=== PATIENT | female | born 1985 | race Caucasian/White ===

== ENCOUNTER 2018-12-05 10:08 | Emergency (ER) | payer SELFPAY ==
[~2018-12-05] VITALS: Ht 162.6 cm; Wt 48.0 kg
[~2018-12-05 10:08] MED LIST: ACYC-114 PO; ACYC200O2 PO; IBUP-1222 PO; PNV1TABL11 PO
[2018-12-05 10:13] VITALS: BP 142/97
[2018-12-05] MEDS ORDERED: DIPH,PERTUSS(ACELL),TET VAC/PF 0.5 ML IM-VACC ONE ×2 (10:40→11:00)
--- NOTE | 2018-12-05 11:14 | NUR ---
CT PAGED TO COLLECT PT, PER COLORMAN PT IS 3RD IN QUEUE.
--- NOTE | 2018-12-05 12:16 | NUR ---
pt given dc instructions and script, educated regarding ketonozole and naproxen rx. pt a&o, resps even and unlabored, nadn. pt amb to dc with steady gait.
== END 2018-12-05 12:17 | disposition home or self-care (01) ==
LOC: ED 12:00
DX: S00.33XA Contusion of nose, initial encounter (principal); L21.9 Seborrheic dermatitis, unspecified; F10.129 Alcohol abuse with intoxication, unspecified; W01.0XXA Fall on same level from slipping, tripping and stumbling without subsequent striking against object, initial encounter; Y93.89 Activity, other specified; Y92.410 Unspecified street and highway as the place of occurrence of the external cause; Y99.8 Other external cause status
CPT/HCPCS: 70450; 70486; 90471; 90715; 99284

== ENCOUNTER 2020-08-23 02:49 | Inpatient (IN) | payer OTHER ==
[~2020-08-23] VITALS: Ht 160 cm; Wt 46.6 kg
[~2020-08-23 02:49] MED LIST changes: -ACYC-114 PO; +ACYC-40 PO
--- NOTE | 2020-08-23 03:06 | NUR ---
INITIAL PT CONTACT. PT PRESENTS TO ED C/O "ETOH WITHDRAWL" LAST DRINK YESTERDAY, NORMAL INTAKE IS 4 GLASSES OF WINE DAILY. PT NOW C/O CHEST PAIN AND TREMORS WITH DIZZINESS AND HEADACHE. PT SITTING UPRIGHT ON GURNEY, ANXIOUS AND TREMULOUS. PT PLACED ON CONTINUOUS MONITORING. CALL LIGHT AND BELONGINGS WITHIN REACH. ERP AT BEDSIDE
[2020-08-23] MEDS ORDERED: LORazepam 2 MG/ML, 1ML ONE ×2 (03:25→04:15)
[2020-08-23] MEDS ORDERED: SODIUM CHLORIDE FLUSH 10ML SYR IVF ONE (03:30)
[2020-08-23] MEDS ORDERED: THIAMINE 100MG TABLET PO ONE (03:30)
[2020-08-23] MEDS ORDERED: SODIUM CHLORIDE 0.9% 1,000ML IVBOLUS ONE (03:30)
[2020-08-23] MEDS ORDERED: LORazepam 2 MG/ML, 1ML IVPush ONE ×2 (03:30→04:30)
[2020-08-23] MEDS ORDERED: THIAMINE 100MG TABLET ONE (03:32)
[2020-08-23 04:00] LABS: BASOPHILS % (AUTO) 2 % (0-1); EOSINOPHILS % (AUTO) 7 % (1-7); LYMPHOCYTES % (AUTO) 38 % (22-44); MEAN CORPUSCULAR HEMOGLOBIN 35.3 pg (27.0-34.8); MEAN CORPUSCULAR HGB CONC 34.6 g/dL (32.4-35.8); MEAN PLATELET VOLUME 9.1 fL (7.4-10.4); MONOCYTES % (AUTO) 12 % (2-9); NEUTROPHILS % (AUTO) 41 % (42-75); PLATELET COUNT 107 x10^3/uL (130-400); RED BLOOD COUNT 3.99 x10^6/uL (3.82-5.3); RED CELL DISTRIBUTION WIDTH 14.4 % (9.6-15.2)
[2020-08-23 04:02] LABS: ALANINE AMINOTRANSFERASE 138 U/L (12-78); ALBUMIN 3.8 g/dL (3.4-5.0); ANION GAP 7 mmol/L (5-15); CALCIUM 8.9 mg/dL (8.5-10.1); CHLORIDE 99 mmol/L (98-107); CREATININE 0.56 mg/dL (0.55-1.02)
[2020-08-23 04:08] LABS: ALKALINE PHOSPHATASE 171 U/L (45-117); BILIRUBIN,TOTAL 1.7 mg/dL (0.2-1.0)
[2020-08-23] MEDS ORDERED: POTASSIUM CHLORIDE 20 MEQ TAB.ER.PRT ONE (04:15)
[2020-08-23 04:30] LABS: FREE T4 (FREE THYROXINE) 1.08 ng/dL (0.76-1.46)
[2020-08-23] MEDS ORDERED: POTASSIUM CHLORIDE 20 MEQ TAB.ER.PRT PO ONE (04:30)
[2020-08-23] MEDS ORDERED: MAGNESIUM SULFATE 1 GM, THIAMINE 100 MG, FOLIC ACID 1 MG, MVI ADULT 10 ML in SODIUM CHL... IV ONE (05:00)
--- NOTE | 2020-08-23 06:00 | NUR ---
PT TO BATHROOM VIA WHEELCHAIR WITH THIS RN. PT DENIES ANY ADDITIONAL NEEDS AT THIS TIME. CALL LIGHT AND PERSONAL BELONGINGS WITHIN REACH. SPOUSE REMAINS AT BEDSIDE.
--- NOTE | 2020-08-23 07:01 | NUR ---
BEDSIDE REPORT FROM RUSLAN GARNER FOR TRANSFER OF PATIENT CARE.
--- NOTE | 2020-08-23 07:01 | NUR ---
REPORT GIVEN TO NEHEMIAH MERCER
--- NOTE | 2020-08-23 07:36 | NUR ---
DR. SAMPSON, [facility] AT BEDSIDE FOR ADMISSION EVAL.
[2020-08-23] MEDS ORDERED: ONDANSETRON 2MG/ML, 2ML IVPush PRN (08:00)
[2020-08-23] MEDS ORDERED: LORazepam 1MG TABLET PO PRN ×4 (08:00)
[2020-08-23] MEDS ORDERED: POLYETHYLENE GLYCOL 17 GM PACKET PO PRN (08:00)
[2020-08-23] MEDS ORDERED: ACETAMINOPHEN 325 MG TABLET PO PRN (08:00)
[2020-08-23] MEDS ORDERED: LORazepam 0.5MG TABLET PO PRN (08:00)
[2020-08-23] MEDS ORDERED: SENNA/DOCUSATE TABLET PO PRN (08:00)
[2020-08-23] MEDS ORDERED: ONDANSETRON ODT 4 MG PO PRN (08:00)
[2020-08-23] MEDS ORDERED: LORazepam 2 MG/ML, 1ML IV PRN ×5 (08:00)
[2020-08-23 08:34] LABS: INTERNATIONAL NORMALIZED RATIO 1.05 (0.93-1.1); PROTHROMBIN TIME 11.2 Seconds (9.6-11.5)
--- NOTE | 2020-08-23 08:37 | NUR ---
BREAKFAST TRAY PROVIDED, FRIEND AT BEDSIDE, CONNECTED TO MONITOR, VSS, CALL LIGHT WITHIN REACH.
--- NOTE | 2020-08-23 08:45 | NUR ---
PATIENT AMBULATED TO BATHROOM WITH ASSISTANCE OF FRIEND.
--- NOTE | 2020-08-23 08:48 | NUR ---
ATTEMPTED TO CALL REPORT.
--- NOTE | 2020-08-23 08:56 | NUR ---
REPORT TO RUSLAN VELASCO FOR TRANSFER OF PATIENT CARE.
[2020-08-23] MEDS ORDERED: MULTIVITAMIN 1 TABLET PO SCH (09:00)
[2020-08-23] MEDS ORDERED: FOLIC ACID 1 MG TABLET PO SCH (09:00)
[2020-08-23] MEDS ORDERED: POTASSIUM CHLORIDE 20 MEQ PACKET PO SCH (09:00)
[2020-08-23] MEDS ORDERED: THIAMINE 100MG TABLET PO SCH (09:00)
--- NOTE | 2020-08-23 09:11 | NUR ---
PATIENT TRANSFERRED IN STABLE CONDITION TO CARDIAC TELE VIA GURNEY WITH MENTAL HEALTH COUNSELOR. ALL PATIENT BELONGINGS TAKEN TO FLOOR WITH PATIENT.
[2020-08-23 09:14] LABS: AMPHETAMINE SCREEN, URINE Negative (Negative); BARBITURATE SCREEN, URINE Negative (Negative); BENZODIAZEPINE SCREEN, URINE Negative (Negative); CANNABINOID SCREEN, URINE Negative (Negative); COCAINE SCREEN, URINE Negative (Negative); METHADONE SCREEN, URINE Negative (Negative); OPIATE SCREEN, URINE Negative (Negative)
[2020-08-23 09:32] VITALS: BP 128/92
[2020-08-23 13:54] VITALS: BP 129/94
[2020-08-23] MEDS ORDERED: CHLORDIAZEPOXIDE 25 MG CAPSULE PO SCH ×2 (14:30)
[2020-08-23 14:56] VITALS: BP 148/112
[2020-08-23] MEDS ORDERED: DIAZEPAM 5 MG TABLET PO SCH (15:00)
[2020-08-23 15:01] VITALS: BP 150/115
[2020-08-23 15:26] VITALS: BP 150/121
[2020-08-23] MEDS ORDERED: LABETALOL 5MG/ML, 20ML IV PRN ×3 (16:00→22:00)
[2020-08-23] MEDS ORDERED: PHENOBARBITAL SODIUM 520 MG in SODIUM CHLORIDE 0.9% 50 ML IVPB ONE (16:00)
[2020-08-23] MEDS ORDERED: DEXMEDETOMIDINE 200 MCG in SODIUM CHLORIDE 0.9% 48 ML IV PRN (16:00)
[2020-08-23] MEDS ORDERED: PHARMACY INSTRUCTION MC PRN ×4 (16:00)
[2020-08-23] MEDS ORDERED: SODIUM CHLORIDE 0.9% IV ONE (16:30)
[2020-08-23] MEDS ORDERED: PHENOBARBITAL SODIUM IV ONE (16:30)
[2020-08-23] MEDS: PHENOBARBITAL SODIUM 130 MG/ML, 1ML IM SCH (23:55)
[2020-08-24 07:26] LABS: BASOPHILS % (AUTO) 1 % (0-1); EOSINOPHILS % (AUTO) 1 % (1-7); LYMPHOCYTES % (AUTO) 6 % (22-44); MEAN CORPUSCULAR HEMOGLOBIN 35.2 pg (27.0-34.8); MEAN CORPUSCULAR HGB CONC 34.2 g/dL (32.4-35.8); MEAN PLATELET VOLUME 9.1 fL (7.4-10.4); MONOCYTES % (AUTO) 5 % (2-9); NEUTROPHILS % (AUTO) 88 % (42-75); PLATELET COUNT 99 x10^3/uL (130-400); RED BLOOD COUNT 3.93 x10^6/uL (3.82-5.3); RED CELL DISTRIBUTION WIDTH 14.2 % (9.6-15.2)
[2020-08-24 07:37] LABS: ALANINE AMINOTRANSFERASE 112 U/L (12-78); ALBUMIN 3.7 g/dL (3.4-5.0); ANION GAP 7 mmol/L (5-15); CALCIUM 9.2 mg/dL (8.5-10.1); CHLORIDE 100 mmol/L (98-107); CREATININE 0.57 mg/dL (0.55-1.02)
[2020-08-24 07:39] LABS: ALKALINE PHOSPHATASE 155 U/L (45-117); BILIRUBIN,TOTAL 2.6 mg/dL (0.2-1.0); TOTAL PROTEIN 7.8 g/dL (6.4-8.2)
[2020-08-24] MEDS ORDERED: POTASSIUM CHLORIDE 20 MEQ, MAGNESIUM SULFATE 1 GM, FOLIC ACID 1 MG, THIAMINE 200 MG, MV... IV SCH (08:00)
[2020-08-24] MEDS ORDERED: IBUPROFEN 200 MG TABLET ONE (09:54)
[2020-08-24] MEDS ORDERED: MAGNESIUM SULFATE PMX 2GM/50ML 50 ML IV ONE (10:00)
[2020-08-24] MEDS: IBUPROFEN 200 MG TABLET PO PRN (10:01)
[2020-08-24] MEDS: POTASSIUM ACID PHOSPHATE 500 MG TABLET.SOL PO SCH ×3 (10:46→22:48)
[2020-08-24] MEDS: POTASSIUM CHLORIDE 20 MEQ TAB.ER.PRT PO SCH ×2 (10:46→16:24)
[2020-08-24] MEDS: PHENOBARBITAL SODIUM 130 MG/ML, 1ML IM SCH (10:48)
[2020-08-24 13:49] VITALS: BP 116/79
[2020-08-24] MEDS: DIPHENHYDRAMINE 50 MG/ML, 1ML IVPush PRN (16:24)
[2020-08-24] MEDS: METOCLOPRAMIDE 5 MG/ML, 2ML IVPush PRN (16:24)
[2020-08-24] MEDS: THIAMINE 100MG TABLET PO SCH (19:55)
[2020-08-24 20:00] VITALS: BP 117/82
[2020-08-24] MEDS: PHENOBARBITAL 20 MG/5 ML ORAL SOL PO SCH (22:48)
[2020-08-25 00:49] VITALS: BP 102/70
[2020-08-25] MEDS: POTASSIUM ACID PHOSPHATE 500 MG TABLET.SOL PO SCH ×3 (04:37→16:52)
[2020-08-25 05:15] LABS: BASOPHILS % (AUTO) 1 % (0-1); EOSINOPHILS % (AUTO) 4 % (1-7); LYMPHOCYTES % (AUTO) 20 % (22-44); MEAN CORPUSCULAR HEMOGLOBIN 35.5 pg (27.0-34.8); MEAN CORPUSCULAR HGB CONC 34.2 g/dL (32.4-35.8); MONOCYTES % (AUTO) 5 % (2-9); NEUTROPHILS % (AUTO) 70 % (42-75); PLATELET COUNT 96 x10^3/uL (130-400); RED BLOOD COUNT 3.34 x10^6/uL (3.82-5.3)
[2020-08-25 05:21] LABS: ALANINE AMINOTRANSFERASE 86 U/L (12-78); ALBUMIN 2.9 g/dL (3.4-5.0); ANION GAP 4 mmol/L (5-15); CALCIUM 8.2 mg/dL (8.5-10.1); CHLORIDE 107 mmol/L (98-107); CREATININE 0.41 mg/dL (0.55-1.02)
[2020-08-25 05:48] LABS: ALKALINE PHOSPHATASE 140 U/L (45-117); BILIRUBIN,TOTAL 1.4 mg/dL (0.2-1.0); TOTAL PROTEIN 6.5 g/dL (6.4-8.2)
[2020-08-25] MEDS ORDERED: CYANOCOBALAMIN 1,000 MCG TABLET ONE (07:53)
[2020-08-25] MEDS: MULTIVITAMIN 1 TABLET PO SCH (08:01)
[2020-08-25] MEDS: POTASSIUM CHLORIDE 20 MEQ TAB.ER.PRT PO SCH (08:01)
[2020-08-25] MEDS: MAGNESIUM OXIDE 400 MG TABLET PO SCH (08:02)
[2020-08-25] MEDS: THIAMINE 100MG TABLET PO SCH ×2 (08:02→20:27)
[2020-08-25] MEDS: FOLIC ACID 1 MG TABLET PO SCH (08:02)
[2020-08-25] MEDS: CYANOCOBALAMIN 1,000 MCG TABLET PO SCH (08:03)
[2020-08-25 08:15] VITALS: BP 124/92
[2020-08-25] MEDS: PHENOBARBITAL 20 MG/5 ML ORAL SOL PO SCH ×2 (11:03→23:22)
[2020-08-25] MEDS: IBUPROFEN 200 MG TABLET PO PRN (11:07)
[2020-08-25 13:10] VITALS: BP 123/87
[2020-08-25] MEDS ORDERED: CALCIUM CARBONATE 500 MG TAB.CHEW PO PRN (16:00)
[2020-08-25] MEDS: METOCLOPRAMIDE 5 MG/ML, 2ML IVPush PRN (18:33)
[2020-08-25] MEDS: DIPHENHYDRAMINE 50 MG/ML, 1ML IVPush PRN (18:33)
[2020-08-25 20:19] VITALS: BP 120/89
[2020-08-26 02:25] VITALS: BP 108/76
[2020-08-26 04:53] LABS: BASOPHILS % (AUTO) 1 % (0-1); EOSINOPHILS % (AUTO) 4 % (1-7); LYMPHOCYTES % (AUTO) 16 % (22-44); MEAN CORPUSCULAR HGB CONC 35.3 g/dL (32.4-35.8); MEAN PLATELET VOLUME 9.5 fL (7.4-10.4); MONOCYTES % (AUTO) 5 % (2-9); NEUTROPHILS % (AUTO) 74 % (42-75); PLATELET COUNT 112 x10^3/uL (130-400); RED BLOOD COUNT 3.37 x10^6/uL (3.82-5.3); RED CELL DISTRIBUTION WIDTH 14.1 % (9.6-15.2)
[2020-08-26 04:57] LABS: CALCIUM 8.7 mg/dL (8.5-10.1); CHLORIDE 104 mmol/L (98-107); CREATININE 0.44 mg/dL (0.55-1.02)
[2020-08-26 05:05] LABS: ANION GAP 4 mmol/L (5-15)
[2020-08-26 07:24] VITALS: BP 123/89
[2020-08-26] MEDS: FOLIC ACID 1 MG TABLET PO SCH (09:27)
[2020-08-26] MEDS: MAGNESIUM OXIDE 400 MG TABLET PO SCH (09:27)
[2020-08-26] MEDS: THIAMINE 100MG TABLET PO SCH (09:27)
[2020-08-26] MEDS: MULTIVITAMIN 1 TABLET PO SCH (09:27)
[2020-08-26] MEDS: CYANOCOBALAMIN 1,000 MCG TABLET PO SCH (09:27)
[2020-08-26] MEDS ORDERED: THIA100T67 PO (10:38)
[2020-08-26] MEDS ORDERED: FOLI1TAB32 PO (10:38)
[2020-08-26] MEDS ORDERED: CYAN250013 PO (10:38)
[2020-08-26] MEDS ORDERED: MULT-482 PO (10:38)
[2020-08-26] MEDS ORDERED: MAGN400T50 PO (10:38)
[2020-08-26] MEDS: PHENOBARBITAL 20 MG/5 ML ORAL SOL PO SCH (11:03)
[2020-08-27] MEDS ORDERED: PHENOBARBITAL 20 MG/5 ML ORAL SOL PO SCH (23:00)
[2020-08-28] MEDS ORDERED: PHENOBARBITAL 20 MG/5 ML ORAL SOL PO SCH (23:00)
== END 2020-08-26 11:20 | disposition home or self-care (01) | DRG 433 ==
LOC: ED 06:12 → EDIP 07:22 → 5SO 09:05 → CCU 15:55 → 5SO 08-24 13:45 → DCLOUNGE 08-26 11:20
PROVIDERS: ADMIT Hospitalist; ATTEND Internal Medicine
DX: K70.10 Alcoholic hepatitis without ascites (principal); E87.1 Hypo-osmolality and hyponatremia; F10.239 Alcohol dependence with withdrawal, unspecified; D69.59 Other secondary thrombocytopenia; D72.819 Decreased white blood cell count, unspecified; D75.89 Other specified diseases of blood and blood-forming organs; E87.6 Hypokalemia; E83.42 Hypomagnesemia; E83.39 Other disorders of phosphorus metabolism; R06.82 Tachypnea, not elsewhere classified; R00.0 Tachycardia, unspecified; Z82.49 Family history of ischemic heart disease and other diseases of the circulatory system; Z83.3 Family history of diabetes mellitus
CPT/HCPCS: 36415; 96361; 96374; 99285; J7042; 76700; 80048; 80053; 80307; 80320; 82140; 82607; 83036; 83690; 83735; 84100; 84439; 84443; 84703; 85025; 85610; 87081; 93005; G0378; J2405; J2560; J3411; J3475; J3480; G0480; J1200; J2060; J2765; J7030; Q0177